=== PATIENT | male | born 2000 | race Caucasian/White ===

== ENCOUNTER → 2018-05-04 | Emergency (ER) | payer OTHER ==
[~2018-05-04] VITALS: Ht 172.7 cm; Wt 72.6 kg
[~2018-05-04] MED LIST: CIPRO500 MG PO; KETO10TA2 PO
== END | disposition home or self-care (01) ==
LOC: ER 02:19
DX: N34.2 Other urethritis (principal); N39.0 Urinary tract infection, site not specified